=== PATIENT | female | born 1960 | race Caucasian/White ===

== ENCOUNTER 2017-05-27 12:19 | Emergency (ER) | payer MEDICARE ==
[~2017-05-27] VITALS: Ht 160 cm; Wt 42.3 kg
[~2017-05-27 12:19] MED LIST: BIOT10008 PO; CALC600T57 PO; FOLB1TAB PO; IBUP-1022 PO; LINZ145C PO; MULTTAB48 PO; RECL5INJ2 IV; [UNRECOGNIZED DRUG - OTHER] TOP
[2017-05-27 12:20] VITALS: BP 148/99
[2017-05-27] MEDS ORDERED: CLON0.5T (12:49)
[2017-05-27] MEDS ORDERED: NORC1TAB4 PO (12:49)
[2017-05-27] MEDS ORDERED: PRED10TA2 PO (14:30)
[2017-05-27] MEDS ORDERED: CYCL5TAB PO (14:30)
== END 2017-05-27 14:36 | disposition home or self-care (01) ==
LOC: M ED 12:19
DX: S39.012A Strain of muscle, fascia and tendon of lower back, initial encounter (principal); X50.9XXA Other and unspecified overexertion or strenuous movements or postures, initial encounter; Y92.9 Unspecified place or not applicable; Y93.89 Activity, other specified; Y99.9 Unspecified external cause status; F41.9 Anxiety disorder, unspecified; M51.26 Other intervertebral disc displacement, lumbar region; M50.93 Cervical disc disorder, unspecified, cervicothoracic region; Z87.891 Personal history of nicotine dependence; Z79.899 Other long term (current) drug therapy

== ENCOUNTER → 2020-03-11 | Outpatient (CLI) | payer MEDICARE ==
[~2020-03-11] MED LIST changes: +ATOR1TAB21 PO; +CLON0.5T2; +CYAN500T8 PO; +CYCL5TAB PO; +EQL50TAB2 PO; +MULTCAP PO; +NORC1TAB7 PO; +PRED10TA2 PO; +VITAD1000T PO; +[UNRECOGNIZED DRUG - OTHER]
== END ==
LOC: M LABSMTC 11:08
PROVIDERS: ATTEND Anesthesiology
DX: Z03.818 Encounter for observation for suspected exposure to other biological agents ruled out (principal); Z11.59 Encounter for screening for other viral diseases
CPT/HCPCS: C9803; U0003

== ENCOUNTER 2020-03-14 09:07 | Day surgery (SDC) | payer MEDICARE ==
[~2020-03-14] VITALS: Ht 160 cm; Wt 43.1 kg
[~2020-03-14 09:07] MED LIST changes: +CEFUROXIME 1MG/0.1ML INTRACAMERAL INJ As Ordered ONE; +DUOVISC (0.50ML VISCOAT/0.55ML PROVISC) OPHTH KIT As Ordered ONE; +MIDAZOLAM INJ 2MG/2ML VIAL (J2250 PER 1MG) As Ordered ONE; +OFLOXACIN 0.3 % (OCUFLOX) OPTH SOL 5ML OS ONE; +PHENYLEPHRINE 2.5% OPHTH SOL 2ML OS ONE; +POVIDONE-IODINE 5% OPHTH PREP SOL 30ML As Ordered ONE; +PROPARACAINE 0.5% OPHTH SOL 15ML OS ONE; +TROPICAMIDE 1% OPHTH SOLN 2ML OS ONE; +fentaNYL 100 MCG/2 ML INJECTION (J3010) As Ordered ONE
[2020-03-14] MEDS ORDERED: BSS IRR 500ML/OMIDRIA 4ML IRR BAG (OR ONLY) (J1097 PER ML) As Ordered ONE (10:32)
[2020-03-14 12:27] VITALS: BP 154/89
--- NOTE | 2020-03-19 14:21 | RO ---
DATE OF PROCEDURE: 03/14/2020 PREOPERATIVE DIAGNOSIS: 1. Visually significant nuclear sclerotic cataract left eye. POSTOPERATIVE DIAGNOSIS: 1. Visually significant nuclear sclerotic cataract left eye. PROCEDURE: 1. Cataract extraction with use of phacoemulsification and placement of intraocular lens, [id number] 23.5 D, left eye. SURGEON: Scott Isaacs DO PEDIATRIC ALLERGIST: None. ANESTHESIA: Local with monitored anesthesia care (MAC), with Omidria (4 mL/500 mL) mixed into irrigation solution. COMPLICATIONS: None. POSTOPERATIVE CONDITION: Stable. INDICATIONS FOR SURGERY: 1. Blurred vision affecting patients activities of daily living. DESCRIPTION OF PROCEDURE: The patient was seen in the preoperative area and properly identified. The correct operative eye was identified and marked. The patient received topical anesthetic, antibiotics, and topical dilating drops. The patient was then transferred to the operating room. The correct side was re-identified, and a time-out was performed. The eye was prepped and draped in a sterile fashion. The eyelids were isolated with Tegaderm tape, and the lids were held open with an adjustable speculum. A 1.0 mm paracentesis incision was made. Intraocular preservative-free Shugarcaine was then injected into the anterior chamber. Viscoelastic was then injected into the anterior chamber through the paracentesis. Using a 2.4 mm sharp-tipped keratome, the anterior chamber was entered via a temporal clear cornea incision. A continuous curvilinear capsulorrhexis was created with Utrata forceps. Hydrodissection was performed with balanced salt solution (BSS) on a blunt cannula until the nucleus was able to rotate freely. The crystalline lens was phacoemulsified and aspirated. Irrigation/aspiration was used to remove the cortical material. Cohesive viscoelastic was placed into the capsular bag to deepen it. The implant was placed into the capsular bag and allowed to unfold. Placement was confirmed by visualizing the anterior capsulorrhexis. Irrigation/aspiration was used to remove the viscoelastic. The clear corneal incision was hydrated with BSS on a blunt cannula. The lens was well positioned. The incisions were then tested for leaks and found to be negative. Cefuroxime was injected into the anterior chamber. The eye was then palpated for appropriate pressure and adjusted accordingly with BSS. The eyelid speculum was then carefully removed. A shield was placed over the eye. The patient tolerated the procedure well and was discharged to the recovery unit in a stable condition.
== END 2020-03-14 13:15 | disposition home or self-care (01) ==
LOC: M SDC 09:07
PROVIDERS: ATTEND Ophthalmology
DX: H25.12 Age-related nuclear cataract, left eye (principal); E78.5 Hyperlipidemia, unspecified; K21.9 Gastro-esophageal reflux disease without esophagitis; F41.9 Anxiety disorder, unspecified; G43.909 Migraine, unspecified, not intractable, without status migrainosus; Z87.891 Personal history of nicotine dependence; Z79.899 Other long term (current) drug therapy
CPT/HCPCS: 66984; J1097; J2250; J3010; V2632

== ENCOUNTER → 2020-04-08 | Outpatient (CLI) | payer MEDICARE ==
[~2020-04-08] MED LIST changes: -CEFUROXIME 1MG/0.1ML INTRACAMERAL INJ As Ordered ONE; -DUOVISC (0.50ML VISCOAT/0.55ML PROVISC) OPHTH KIT As Ordered ONE; -MIDAZOLAM INJ 2MG/2ML VIAL (J2250 PER 1MG) As Ordered ONE; -OFLOXACIN 0.3 % (OCUFLOX) OPTH SOL 5ML OS ONE; +OMEP1CAP73 PO; -PHENYLEPHRINE 2.5% OPHTH SOL 2ML OS ONE; -POVIDONE-IODINE 5% OPHTH PREP SOL 30ML As Ordered ONE; -PROPARACAINE 0.5% OPHTH SOL 15ML OS ONE; -TROPICAMIDE 1% OPHTH SOLN 2ML OS ONE; -fentaNYL 100 MCG/2 ML INJECTION (J3010) As Ordered ONE
== END ==
LOC: M LABSMTC 11:49
PROVIDERS: ATTEND Anesthesiology
DX: Z01.818 Encounter for other preprocedural examination (principal); Z11.59 Encounter for screening for other viral diseases
CPT/HCPCS: C9803; U0003

== ENCOUNTER 2020-05-09 09:20 | Day surgery (SDC) | payer MEDICARE ==
[~2020-05-09 09:20] MED LIST changes: +CEFUROXIME 1MG/0.1ML INTRACAMERAL INJ As Ordered ONE; +D31000TA2 PO; +DUOVISC (0.50ML VISCOAT/0.55ML PROVISC) OPHTH KIT As Ordered ONE; +OFLOXACIN 0.3 % (OCUFLOX) OPTH SOL 5ML As Ordered ONE; -OMEP1CAP73 PO; +PHENYLEPHRINE 2.5% OPHTH SOL 2ML As Ordered ONE; +PROPARACAINE 0.5% OPHTH SOL 15ML As Ordered ONE; +TROPICAMIDE 1% OPHTH SOLN 2ML As Ordered ONE; -VITAD1000T PO
[2020-05-09] MEDS ORDERED: MIDAZOLAM INJ 2MG/2ML VIAL (J2250 PER 1MG) As Ordered ONE (10:03)
[2020-05-09] MEDS ORDERED: fentaNYL 100 MCG/2 ML INJECTION (J3010) As Ordered ONE (10:03)
== END 2020-05-09 11:45 | disposition home or self-care (01) ==
LOC: M SDC 09:20
PROVIDERS: ATTEND Ophthalmology
DX: H25.11 Age-related nuclear cataract, right eye (principal); E78.5 Hyperlipidemia, unspecified; K21.9 Gastro-esophageal reflux disease without esophagitis; G43.909 Migraine, unspecified, not intractable, without status migrainosus; Z87.891 Personal history of nicotine dependence; Z79.899 Other long term (current) drug therapy
CPT/HCPCS: 66984; J2250; J3010; V2632

== ENCOUNTER → 2022-07-15 | Outpatient (CLI) | payer MEDICARE ==
[~2022-07-15] MED LIST changes: -CEFUROXIME 1MG/0.1ML INTRACAMERAL INJ As Ordered ONE; +CYAN500T14 PO; -CYAN500T8 PO; -D31000TA2 PO; -DUOVISC (0.50ML VISCOAT/0.55ML PROVISC) OPHTH KIT As Ordered ONE; +ISOVUE-370 76% 100ML VIAL As Ordered ONE; -OFLOXACIN 0.3 % (OCUFLOX) OPTH SOL 5ML As Ordered ONE; -PHENYLEPHRINE 2.5% OPHTH SOL 2ML As Ordered ONE; -PROPARACAINE 0.5% OPHTH SOL 15ML As Ordered ONE; -TROPICAMIDE 1% OPHTH SOLN 2ML As Ordered ONE; +VITA100093 PO
== END ==
LOC: M RAD 13:25
PROVIDERS: ATTEND Family Medicine
DX: R22.1 Localized swelling, mass and lump, neck (principal); Z87.891 Personal history of nicotine dependence; D37.05 Neoplasm of uncertain behavior of pharynx
CPT/HCPCS: 70491; Q9967

== ENCOUNTER → 2022-08-06 | Outpatient (CLI) | payer MEDICARE ==
[~2022-08-06] MED LIST changes: -ISOVUE-370 76% 100ML VIAL As Ordered ONE
== END ==
LOC: M RAD 11:26
PROVIDERS: ATTEND Family Medicine
DX: E07.9 Disorder of thyroid, unspecified (principal)

== ENCOUNTER → 2022-12-23 | Outpatient (CLI) | payer MEDICARE | LOC: M PLARAD 14:57 | PROVIDERS: ATTEND Otolaryngology | DX: C02.9 Malignant neoplasm of tongue, unspecified (principal); C01 Malignant neoplasm of base of tongue | CPT/HCPCS: 78815; A9552 ==